=== PATIENT | male | born 1970 | race Hispanic/Latino ===

== ENCOUNTER 2018-03-02 08:52 | Emergency (ER) | payer OTHER ==
[~2018-03-02] VITALS: Ht 170.2 cm; Wt 127.0 kg
--- NOTE | 2018-03-02 09:35 | NUR ---
pt states he smokes about 5 cigarrettes a day counseling performed pt asked if he would like smoking cessation assistance pt says no. pt states he is diabetic x 2 years checks his blood sugar once a month but takes metformin states he tries to regularly take it but did not this morning denies any other medical history
[2018-03-02 09:42] VITALS: BP 133/73
== END 2018-03-02 10:05 | disposition home or self-care (01) ==
LOC: ER 08:52
DX: M54.6 Pain in thoracic spine (principal); M54.5 Low back pain; S39.012A Strain of muscle, fascia and tendon of lower back, initial encounter; S23.3XXA Sprain of ligaments of thoracic spine, initial encounter; X50.0XXA Overexertion from strenuous movement or load, initial encounter; Y92.89 Other specified places as the place of occurrence of the external cause; F17.210 Nicotine dependence, cigarettes, uncomplicated
CPT/HCPCS: 99281

== ENCOUNTER 2018-03-04 19:13 | Emergency (ER) | payer OTHER ==
[~2018-03-04] VITALS: Ht 170.2 cm; Wt 127.0 kg
[2018-03-04] MEDS ORDERED: KETOROLAC TROMETHAMINE 60 MG/2 ML VIAL ONE (20:09)
[2018-03-04] MEDS ORDERED: KETOROLAC TROMETHAMINE 30 MG/ML VIAL INJ NR (20:15)
[2018-03-04] MEDS ORDERED: DEXAMETHASONE SOD PHOS 10 MG/1 ML VIAL INJ ONE (20:15)
[2018-03-04] MEDS ORDERED: HYDROCODONE/APAP 10MG-325MG TAB PO NR (20:15)
--- NOTE | 2018-03-04 20:56 | Diagnostic Imaging Report ---
EXAMINATION: CHEST 2 VIEWS INDICATION: ^r/o pne ^[id number] ^[id number] COMPARISON: None FINDINGS: PA and lateral views TUBES and LINES: None. LUNGS: Limited by body habitus and low lung volumes. Mild medial lower lung field hazy opacities, silhouetting the medial hemidiaphragms. PLEURA: No pleural effusion or pneumothorax. HEART AND MEDIASTINUM: The cardiomediastinal silhouette is enlarged, accentuated by low lung volumes. BONES AND SOFT TISSUES: No acute osseous lesion. Soft tissues are unremarkable. UPPER ABDOMEN: No free air under the diaphragm. IMPRESSION: Limited as above. Mild medial lower lung field hazy opacities, representing atelectasis and/or developing pneumonia. Signed by: Dr. Declan Santiago MD on 03/04/2018 8:52 PM
== END 2018-03-04 21:40 | disposition home or self-care (01) ==
LOC: ER 19:13
DX: M54.5 Low back pain (principal); S39.012A Strain of muscle, fascia and tendon of lower back, initial encounter; S29.012A Strain of muscle and tendon of back wall of thorax, initial encounter
CPT/HCPCS: 71046; 99283; J1100; J1885